=== PATIENT | female | born 2000 | race Caucasian/White ===

== ENCOUNTER → 2021-12-24 | Outpatient (CLI) | payer BC ==
--- NOTE | 2021-12-24 10:35 | RAD ---
EXAM: Obstetrics sonogram. HISTORY: Unsure dates. TECHNIQUE: Transabdominal and transvaginal sonographic imaging of the pelvis was performed. COMPARISON: None. FINDINGS: The uterus measures 11 x 8 x 5 cm. There is a single intrauterine gestational sac containin g an echogenic focus possibly due to a pole measuring 2 mm, corresponding with a gestational ag e of 5 weeks and 5 days. No normal-appearing yolk sac is seen. The gestational sac is elongated in co nfiguration. There is no subchorionic hematoma. No cardiac activity is seen. The ovaries are no rmal in size and demonstrate normal blood flow. There is a 2.1 cm complicated right ovarian cyst. The re is no pelvic free fluid. IMPRESSION: 1. Single intrauterine gestational sac with possible small pole with a crown-rump length measur ement corresponding with a gestational age of 5 weeks and 5 days. No cardiac activity is seen, possibly due to early gestational age. However, no identifiable yolk sac is seen and the gestational sac is slightly abnormal in configuration. This suggests a possible early nonviable . Sonogr aphic follow-up in one week to assess for interval growth and cardiac activity is recommended. 2. 2.1 cm complicated right ovarian cyst. Electronically signed by: Jessica Benavides MD (12/24/2021 10:32 AM) [id number]
== END ==
LOC: US 09:41
PROVIDERS: ATTEND Obstetrics & Gynecology
DX: O34.81 Maternal care for other abnormalities of pelvic organs, first trimester (principal); Z3A.01 Less than 8 weeks gestation of pregnancy
CPT/HCPCS: 76801; 76817

== ENCOUNTER 2021-12-29 13:15 | Emergency (ER) | payer BC ==
[~2021-12-29] VITALS: Ht 167.6 cm; Wt 76.5 kg
--- NOTE | 2021-12-29 14:22 | PHYS DOC ---
Past Medical History Additional Past Medical Histor: E.COLI IN URINE Past Surgical History: No Surgical History Smoking Status: Never Smoker Alcohol Use: None General Adult EDM: Chief Complaint: VAGINAL BLEEDING HPI: HPI: Patient is a 21 year old female who presents with vaginal bleeding and abdominal pain in . Unsure of gestational age. Unknown LMP. Had an IUD until mid-September and did not have a period before having a positive test in November. Was seen by Dr. Rivera, of OB, and had an US done on 12/24 as below. It did not confirm an IUP (no yolk sace and only "possible" pole). Last night began with vaginal bleeding an cramping. Cramping is low pelvic in the midline waxes/wanes in intensity. States she had a [address] that only took 4 hours to fill. States she has never had so much vaginal bleeding before. No history of ectopic . Has had a history of chlamydia infection that was treated. No history of PID. (12/24/2021 10:32 AM) OB Ultrasound IMPRESSION: 1. Single intrauterine gestational sac with possible small pole with a crown-rump length measurement corresponding with a gestational age of 5 weeks and 5 days. No cardiac activity is seen, possibly due to early gestational age. However, no identifiable yolk sac is seen and the gestational sac is slightly abnormal in configuration. This suggests a possible early nonviable . Sonographic follow-up in one week to assess for interval growth and cardiac activity is recommended. 2. 2.1 cm complicated right ovarian cyst. Review of Systems: Review of Systems: Constitutional: Denies fever or chills. [] Eyes: Denies change in visual acuity. [] HENT: Denies nasal congestion or sore throat. [] Respiratory: Denies cough or shortness of breath. [] Cardiovascular: Denies chest pain or edema. [] GI: Denies abdominal pain, nausea, vomiting, bloody stools or diarrhea. [] : Reports vaginal bleeding, lower abdominal cramping. Musculoskeletal: Denies back pain or joint pain. [] Integument: Denies rash. [] Neurologic: Denies headache, focal weakness or sensory changes. [] Endocrine: Denies polyuria or polydipsia. [] Lymphatic: Denies swollen glands. [] Psychiatric: Denies depression or anxiety. [] Heart Score: C/O Chest Pain: No Allergies: Allergies: Allergies Coded Allergies Type Severity Reaction Last Updated Verified No Known Drug Allergies 12/29/21 No Physical Exam: PE: Constitutional: Well developed, well nourished, no acute distress, non-toxic appearance. [] HENT: Normocephalic, atraumatic Neck: Normal range of motion, no tenderness, supple, no stridor. [] Cardiovascular:Heart rate regular rhythm, no murmur [] Lungs & Thorax: Bilateral breath sounds clear to auscultation [] Abdomen: Diffuse abdominal tenderness, worst in the low midline/suprapubic region. Account Service Associate: Blood on external genitalia, otherwise normal in appearance. There is a tissue density protruding from the cervical os. This was removed with a ring forcep. 1 additional large clot was removed. The cervical os was noted to be visibly open. Following clot and tissue retrieval, there was no further bleeding noted. Skin: Warm, dry, no erythema, no rash. [] Back: No tenderness, no CVA tenderness. [] Extremities: No tenderness, no cyanosis, no clubbing, ROM intact, no edema. [] Psychologic: Affect normal, judgement normal, mood normal. [] Current Patient Data: Vital Signs: Vital Signs Date Time Temp Pulse Resp B/P (MAP) Pulse Ox O2 Delivery O2 Flow Rate FiO2 12/29/21 13:50 98.2 86 20 122/71 (88) 99 Room Air 98.2 EKG: EKG: [] Radiology/Procedures: Radiology/Procedures: [id number] ultrasound of the abdomen does not show evidence of pelvic or right upper quadrant free fluid. Dedicated OB US pending. 1442 Impression: [facility] [address] [place] [address] IMAGING REPORT Signed PATIENT: BOBO HOANG ACCOUNT: [id number] : 2000 LOCATION: ER AGE: 21 SEX: F EXAM STATUS: REG ER ORD. PHYSICIAN: HEAVEN ALMAGUER MD REASON: vaginal bleeding, questionable IUP on 12/24 US PROCEDURE: OB TRANSVAG EXAM: Obstetrics sonogram. HISTORY: Vaginal bleeding. TECHNIQUE: Transvaginal sonographic imaging of the pelvis was performed. COMPARISON: 12/24/2021. FINDINGS: The uterus measures 11 x 6 x 5 cm. There is an abnormal fluid collection containing echogenic debris within the lower uterine cavity narrowing the endocervical canal, measuring 4.2 cm in maximum dimension. No yolk sac or pole is seen. The adnexal regions are not formally assessed due to patient discomfort. IMPRESSION: 1. Complex fluid collection containing debris within the lower uterine cavity narrowing the endocervical canal, consistent with a previously demonstrated gestational sac. The size or consistent with impending miscarriage. No pole is seen. 2. Nonassessment of the adnexal regions due to patient discomfort. Electronically signed by: Jessica Rangel MD (12/29/2021 3:21 PM) [id number] DICTATED and SIGNED BY: JESSICA RANGEL MD DATE: 12/29/21 [id number] 0 Course & Med Decision Making: Course & Med Decision Making Pertinent Labs and Imaging studies reviewed. (See chart for details) Patient is 21-year-old female G1, P0 at unknown gestational age who presents with vaginal bleeding and lower abdominal cramping. 12/24 US could not confirm IUP and had a ? of non-viable with recommendation for f/u US in 1 week. Ddx includes miscarriage, threatened miscarriage, ectopic . Vitally stable on arrival. No free fluid on bedside US. Pelvic exam, OB Transvag US, quant-hcg, and cbc pending. --- Ultrasound read demonstrates a low uterine gestational sac now with debris evident. Concerning for miscarriage. The pelvic exam was performed and piece of tissue density was removed from the cervical os which was clearly open --supporting diagnosis of miscarriage. Blood type B+, no need for rhogam. Patient counseled on miscarriage and expectant managment. She has OB f/u with Dr. Rivera. Discussed return precautions for brisk bleeding, severe pain, syncope, chest pain, sob. 175 [place] Disclaimer: Crescencio Disclaimer: This electronic medical record was generated, in whole or in part, using a voice recognition dictation system. Departure Departure Impression: Primary Impression: Miscarriage Disposition: HOME / SELF CARE / HOMELESS Condition: STABLE Referrals: HOLLI ORTEZ MD (PCP) KERRI RIVERA MD Please follow-up with your OB if bleeding or discomfort continues for more than a few days. Patient Instructions: HEAVEN Jefferson MD Dec 29, 2021 14:22
[2021-12-29] MEDS ORDERED: MORPHINE SULFATE 2 MG/ML INJ. IVP ONE (14:45)
[2021-12-29 14:47] LABS: BASO % 0 % (0-3); EOS # 0.2 x10^3/uL (0.0-0.7); EOS % 3 % (0-3); HEMOGLOBIN 13.8 g/dL (12.0-15.5); LYMPH # 1.6 x10^3/uL (1.0-4.8); LYMPH % 21 % (24-48); MEAN CORPUSCULAR HEMOGLOBIN 30 pg (25-35); MEAN CORPUSCULAR HGB CONC 34 g/dL (31-37); MEAN CORPUSCULAR VOLUME 90 fL (79-100); MONO # 0.6 x10^3/uL (0.0-1.1); MONO % 8 % (0-9); NEUT # 5.1 x10^3/uL (1.8-7.7); NEUT % 68 % (31-73); PLATELET COUNT 264 x10^3/uL (140-400); RED BLOOD COUNT 4.54 x10^6/uL (3.50-5.40); RED CELL DISTRIBUTION WIDTH 12.5 % (11.5-14.5); WHITE BLOOD COUNT 7.5 x10^3/uL (4.0-11.0)
--- NOTE | 2021-12-29 15:23 | RAD ---
EXAM: Obstetrics sonogram. HISTORY: Vaginal bleeding. TECHNIQUE: Transvaginal sonographic imaging of the pelvis was performed. COMPARISON: 12/24/2021. FINDINGS: The uterus measures 11 x 6 x 5 cm. There is an abnormal fluid collection containing echogen ic debris within the lower uterine cavity narrowing the endocervical canal, measuring 4.2 cm in maxim um dimension. No yolk sac or pole is seen. The adnexal regions are not formally assessed due to patient discomfort. IMPRESSION: 1. Complex fluid collection containing debris within the lower uterine cavity narrowing the endocervi nick canal, consistent with a previously demonstrated gestational sac. The size or consistent with imp ending miscarriage. No pole is seen. 2. Nonassessment of the adnexal regions due to patient discomfort. Electronically signed by: Jessica Benavides MD (12/29/2021 3:21 PM) [id number]
[2021-12-29 17:25] VITALS: BP 123/60
--- NOTE | 2022-01-01 17:10 | PATHOLOGY ---
[facility] Accession Number: [id number] . 01 Material submitted: . product of conception - PRODUCTS OF CONCEPTION . 01 Clinical history: . LMP: UNKNOWN . 02 Diagnosis: Tissue designated "products of conception": - Decidual cast showing focal hemorrhage and acute inflammation. LBQ 01/01/2022 1248 Local . 02 Comment: No chorionic villi are identified. (JPM/db; 01/01/2022) . 02 Electronically signed: . Rahul Byrne MD, Pathologist NPI- [id number] . 01 Gross description: . The specimen is received in formalin, labeled "[place], Samantha, products of conception" and consists of a shoemaker-sr soft and rubbery irregular tissue and blood clot (9.7 x 7.0 x 2.0 cm). Possible Gestational sac remnants are identified. No definitive chorionic villi, parts or hydropic villi are identified. Pharmacy Order Entry Technician sections are submitted in 3 cassettes.(RAMONA; 12/31/2021) DKA/DKA 12/31/2021 1031 Local . 02 Pathologist provided ICD-10: N93.9 . 02 CPT . 500371 Specimen Comment: A courtesy copy of this report has been sent to [phone] Specimen Comment: Report sent to Performed at: 01 [facility] [address], [place] [id number] MD Avery Winter MD Phone: [phone] Performed at: 02 [facility] [address] [place], [place] [id number] MD Rahul Byrne MD Phone: [phone]
== END 2021-12-29 17:35 | disposition home or self-care (01) ==
LOC: ER 13:15
DX: O03.9 Complete or unspecified spontaneous abortion without complication (principal); Z3A.01 Less than 8 weeks gestation of pregnancy
CPT/HCPCS: 36415; 76817; 84702; 85025; 86850; 86900; 86901; 96374; 99285; J2270

== ENCOUNTER 2022-02-08 20:41 | Emergency (ER) | payer BC ==
[~2022-02-08] VITALS: Ht 167.6 cm; Wt 75.0 kg
[2022-02-08] MEDS: IV NORMAL SALINE 1000ML BAG 1,000 ML IV ONE (21:00)
--- NOTE | 2022-02-08 21:32 | PHYS DOC ---
Past Medical History Additional Past Medical Histor: E.COLI IN URINE Past Surgical History: No Surgical History Smoking Status: Never Smoker Alcohol Use: None Adult General Chief Complaint Chief Complaint: DIZZY/LIGHT HEADED HPI HPI The patient is a 21-year-old female who is otherwise healthy. She had a miscarriage in December and since Tuesday has been having her first period since the miscarriage. She reports the bleeding has been rather heavy and that she has been going through about 4-5 pads a day over that interval. Ms. Leonard presents for evaluation of an apparent presyncopal or syncopal episode occurring prior to arrival at work. 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 She did not sleep well and thought about calling in but decided not to. She ate a hot pocket before going to work. When she got to wo rk she felt lightheaded and as though she was having difficulty focusing. She then began focusing on her breathing and began breathing rapidly. She began to feel hot. She then began having some tingling to her hands and feet. She then passed out, falling into some boxes and not sustaining any injury. She was then brought here POV for evaluation. Upon initial evaluation here in the emergency department patient is alert and oriented, pleasantly and appropriately interactive and in no acute distress with appropriate vital signs and blood glucose. She denies associated fevers, vomiting, headache, focal or lateralizing weakness, numbness or tingling, neck stiffness/pain/meningismus, vision changes, upper respiratory congestion/rhinorrhea, cough, sore throat, chest pain of any kind, abdominal pain of any kind, flank pain, midline back pain, dysuria, hematuria, polyuria or oliguria, changes in bowel habits, pain or swelling to arms or legs. Review of Systems Review of Systems A 12 point review of systems was completed and was negative except where noted in HPI above. Current Medications Current Medications Current Medications Medications (Trade) Dose Ordered Sig/Fabio Start Time Stop Time Status Last Admin Dose Admin Sodium Chloride 1,000 ml @ 1,000 mls/hr 1X ONCE 02/08/22 21:00 02/08/22 21:59 DC Allergies Allergies Allergies Coded Allergies Type Severity Reaction Last Updated Verified No Known Drug Allergies 12/29/21 No Physical Exam Physical Exam 21-year-old female appearing nontoxic and in no acute distress. Head is normocephalic and atraumatic. Neck is supple and nontender. Oropharynx is moist. Lungs are clear to auscultation at all stations. There is a normal S1 and S2 without rubs or gallops and capillary refill is appropriate, less than 2 seconds globally. Abdomen is soft, nontender nondistended without pulsatile mass. Skin is warm and dry without cyanosis, clubbing or edema. Psychiatrically, the patient demonstrates appropriate mood and affect and is alert. Evaluation of the extremities reveals BUEs and BLEs neurovascularly intact distally with strength out of 5, sensation intact light touch in all nerve distributions, radial, DP and PT pulses 2+ and equal bilaterally, capillary refill less than 2 seconds, hands and feet warm and well-perfused. No dependent peripheral edema distally. No calf tenderness or swelling bilaterally. Homans test is negative bilaterally. Neurologically, cranial nerves II through XII are intact and there are no lateralizing deficits seen. Speech is normal. Language is normal. Coordination is normal. There is no dysmetria finger-nose or [id number] bilaterally. Strength is 5 out of 5 in all joints of bilateral upper and lower extremities. Sensations intact light touch in bilateral upper and lower extremities. Patient ambulates with a narrow, steady, non-ataxic gait here in the emergency department and is alert and oriented x4. Current Patient Data Vital Signs Vital Signs Date Time Temp Pulse Resp B/P (MAP) Pulse Ox O2 Delivery O2 Flow Rate FiO2 02/08/22 20:41 98.0 72 18 146/70 (95) 100 Room Air 98.0 Lab Values Laboratory Tests Test 02/08/22 20:55 02/08/22 21:36 Glucose (Fingerstick) 112 mg/dL (70-99) H White Blood Count 6.7 x10^3/uL (4.0-11.0) Red Blood Count 4.30 x10^6/uL (3.50-5.40) Hemoglobin 13.3 g/dL (12.0-15.5) Hematocrit 39.0 % (36.0-47.0) Mean Corpuscular Volume 91 fL (79-100) Mean Corpuscular Hemoglobin 31 pg (25-35) Mean Corpuscular Hemoglobin Concent 34 g/dL (31-37) Red Cell Distribution Width 12.3 % (11.5-14.5) Platelet Count 278 x10^3/uL (140-400) Neutrophils (%) (Auto) 54 % (31-73) Lymphocytes (%) (Auto) 33 % (24-48) Monocytes (%) (Auto) 10 % (0-9) H Eosinophils (%) (Auto) 2 % (0-3) Basophils (%) (Auto) 1 % (0-3) Neutrophils # (Auto) 3.6 x10^3/uL (1.8-7.7) Lymphocytes # (Auto) 2.2 x10^3/uL (1.0-4.8) Monocytes # (Auto) 0.7 x10^3/uL (0.0-1.1) Eosinophils # (Auto) 0.1 x10^3/uL (0.0-0.7) Basophils # (Auto) 0.0 x10^3/uL (0.0-0.2) Sodium Level 142 mmol/L (136-145) Potassium Level 3.7 mmol/L (3.5-5.1) Chloride Level 107 mmol/L (98-107) Carbon Dioxide Level 23 mmol/L (21-32) Anion Gap 12 (6-14) Blood Urea Nitrogen 11 mg/dL (7-20) Creatinine 0.7 mg/dL (0.6-1.0) Estimated GFR (Cockcroft-Gault) 104.6 BUN/Creatinine Ratio 16 (6-20) Glucose Level 108 mg/dL (70-99) H Calcium Level 9.3 mg/dL (8.5-10.1) Total Bilirubin 0.6 mg/dL (0.2-1.0) Aspartate Amino Transferase (AST) 18 U/L (15-37) Alanine Aminotransferase (ALT) 15 U/L (14-59) Alkaline Phosphatase 80 U/L (46-116) Troponin I High Sensitivity < 4 ng/L (4-50) L Total Protein 7.8 g/dL (6.4-8.2) Albumin 4.1 g/dL (3.4-5.0) Albumin/Globulin Ratio 1.1 (1.0-1.7) Serum Test, Qualitative Negative (NEG) Salicylates Level 0.3 mg/dL (2.8-20.0) L Salicylate Last Dose Date Unk Salicylate Last Dose Time Unk Acetaminophen Level < 2 mcg/ml (10-30) L Acetaminophen Last Dose Date Unk Acetaminophen Last Dose Time Unk Ethyl Alcohol Level < 10 mg/dL (0-10) Laboratory Tests 02/08/22 21:36 Laboratory Tests 02/08/22 21:36 EKG EKG Sinus rhythm, rate 65, no acute ST elevation or depression, OR 150, QRS 86, QTc 398, EP interpretation. Nonischemic tracing, intervals appropriate. Radiology/Procedures Radiology/Procedures Chest x-ray: No acute cardiopulmonary process per EP interpretation. Formal radiology interpretation is to follow. Course & Med Decision Making Course & Med Decision Making Well-appearing 21-year-old female with normal vital signs, reassuring clinical examination and nonfocal neurologic examination presenting for evaluation of a presyncopal or syncopal episode prior to arrival. Clinical history seems most consistent with a vasovagal episode. Will check labs, EKG and chest x-ray as noted and will give some IV fluids and will then reevaluate. If work-up is reassuring and the patient feels better, likely home to follow-up closely with primary care. Patient understands and agrees. 2254: Patient is resting very comfortably on serial reassessments. Vital signs remain appropriate. Patient states she feels much, much better after IV fluids here in the emergency department. She is ambulatory with a narrow, steady, non- ataxic gait. No symptomatic lightheadedness with ambulation. Labs, EKG and imaging are all benign. Patient has not been able to provide a urine sample yet but doubt UTI. Patient would like to go home and get some rest. Will discharge home with a work note and instructions to rest, hydrate and follow-up closely with primary care. Patient understands that if she feels worse instead of better or develops other new symptoms of concern that she should return to the emergency department immediately for reevaluation. All questions are answered. Dragon Disclaimer Dragon Disclaimer This electronic medical record was generated, in whole or in part, using a voice recognition dictation system. Departure Departure Impression: Primary Impression: Syncope and collapse Disposition: HOME / SELF CARE / HOMELESS Condition: IMPROVED Referrals: HOLLI ORTEZ MD (PCP) Patient Instructions: Syncope Additional Instructions: Follow-up very closely with your primary care doctor in the office in the next 2 to 4 days for a reevaluation of your symptoms and a discussion of next best steps in care. Please take good care of yourself over the next few days and be sure to drink plenty of fluids and eat nourishing meals as we discussed. Return to the emergency department right away for worsening symptoms of any kind or with any other new symptoms of concern. KENAN STALLINGS MD Feb 08, 2022 21:32
[2022-02-08 21:44] LABS: BASO % 1 % (0-3); EOS # 0.1 x10^3/uL (0.0-0.7); EOS % 2 % (0-3); HEMOGLOBIN 13.3 g/dL (12.0-15.5); LYMPH # 2.2 x10^3/uL (1.0-4.8); LYMPH % 33 % (24-48); MEAN CORPUSCULAR HEMOGLOBIN 31 pg (25-35); MEAN CORPUSCULAR HGB CONC 34 g/dL (31-37); MEAN CORPUSCULAR VOLUME 91 fL (79-100); MONO # 0.7 x10^3/uL (0.0-1.1); MONO % 10 % (0-9); NEUT # 3.6 x10^3/uL (1.8-7.7); NEUT % 54 % (31-73); PLATELET COUNT 278 x10^3/uL (140-400); RED CELL DISTRIBUTION WIDTH 12.3 % (11.5-14.5); WHITE BLOOD COUNT 6.7 x10^3/uL (4.0-11.0)
[2022-02-08 21:58] LABS: PREG TEST PT QUAL NEGATIVE (NEG)
[2022-02-08 21:59] LABS: CALCIUM 9.3 mg/dL (8.5-10.1); CREATININE 0.7 mg/dL (0.6-1.0); GFR 104.6; POTASSIUM 3.7 mmol/L (3.5-5.1)
[2022-02-08 22:04] LABS: ACETAMIN < 2 mcg/ml (10-30); ALBUMIN 4.1 g/dL (3.4-5.0); ALBUMIN/GLOBULIN RATIO 1.1 (1.0-1.7); ETHANOL < 10 mg/dL (0-10); SALIC 0.3 mg/dL (2.8-20.0); TOTAL BILIRUBIN 0.6 mg/dL (0.2-1.0); TOTAL PROTEIN 7.8 g/dL (6.4-8.2)
--- NOTE | 2022-02-08 22:59 | RAD ---
XR CHEST 1V 02/08/2022 10:55 PM INDICATION: Syncope COMPARISON: None available TECHNIQUE: Portable frontal view of the chest is provided. FINDINGS: The cardiomediastinal silhouette is within normal limits. Lungs are clear. There are no significant pleural effusions. There is no pulmonary vascular congestion. No pneumothora x. No suspicious osseous abnormality. IMPRESSION: There is no acute cardiopulmonary process. Electronically signed by: Katrina Zuniga MD (02/08/2022 10:57 PM) [facility]
[2022-02-08 23:02] VITALS: BP 105/57
--- NOTE | 2022-02-09 02:41 | EKG ---
[facility] [address] [place] [address] Test Date: 2022-02-08 Test Time: 20:44:58 Pat Name: BOBO HOANG Department: Room: Gender: F Maintenance Representative: : 2000 Requested By: KENAN STALLINGS Order Number: [id number] Reading MD: Gonzalo Alatorre Measurements Intervals [place] Rate: 65 P: 54 MD: 150 QRS: 38 QRSD: 86 T: 12 QT: 382 QTc: 398 Interpretive Statements SINUS RHYTHM NORMAL ECG RI6.02 No previous ECG available for comparison Electronically Signed On 02-13-2022 21:47:16 CDT by Gonzalo Alatorre
== END 2022-02-08 23:07 | disposition home or self-care (01) ==
LOC: ER 20:41
DX: R55 Syncope and collapse (principal)
CPT/HCPCS: 36415; 71045; 80053; 80329; 82962; 84484; 84703; 85025; 93005; 96360; 99285; G0480; J7030